=== PATIENT | female | born 1960 | race Two or more races ===

== ENCOUNTER 2024-11-07 19:20 | Emergency (ER) | payer OTHER ==
[~2024-11-07] VITALS: Ht 165.1 cm; Wt 119.6 kg
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
[2024-11-07] MEDS: KETOROLAC TROMETH 60MG/2ML VIAL IM ONE (20:15)
[2024-11-07] MEDS ORDERED: OXYCODONE W/ ACETAMINOPHEN 5/325MG TABLET PO ONE (20:15)
[2024-11-07] MEDS ORDERED: HYDROcodone-ACET 5/325MG TAB PO ONE (20:45)
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
[2024-11-07 21:41] VITALS: BP 140/73; PULSE 71; RESP 18; TEMP 98.2; O2SAT 96
== END 2024-11-07 21:54 | disposition home or self-care (01) ==
LOC: ER 19:24
DX: S13.4XXA Sprain of ligaments of cervical spine, initial encounter (principal); S80.02XA Contusion of left knee, initial encounter; S80.12XA Contusion of left lower leg, initial encounter; Z88.5 Allergy status to narcotic agent; V49.88XA Car occupant (driver) (passenger) injured in other specified transport accidents, initial encounter; Y93.I9 Activity, other involving external motion; Y92.488 Other paved roadways as the place of occurrence of the external cause; Y99.8 Other external cause status
CPT/HCPCS: 72040; 96372; 99283; J1885